=== PATIENT | female | born 1995 | race Caucasian/White ===

== ENCOUNTER 2017-03-05 10:48 | Day surgery (SDC) | payer BC, OTHER ==
[2017-02-22 10:02] VITALS: BP 108/53
[~2017-03-05] VITALS: Ht 172.7 cm; Wt 48.0 kg
[~2017-03-05 10:48] MED LIST: ALBUTEROL INH INH; ALBUTEROL NEB; BACITRACIN 50,000 UNIT ONE; BACITRACIN OINT 500U/GM, 15 GM ONE; EPINEPHRINE 1 MG/ML, 1ML ONE; EPINEPHRINE TOPICAL SOLN 1 MG/ML, 30ML ONE; FLUORESCEIN OPHTHALMIC 1 MG STRIP ONE; HYDR-3240 PO; LIDOCAINE/PF 1%, 30ML ONE; OXYMETAZOLINE NASAL SPRAY 0.05%, 15ML ONE
[2017-03-05] MEDS ORDERED: LACTATED RINGERS 1,000 ML IV SCH (11:15)
[2017-03-05 11:17] VITALS: BP 108/53
[2017-03-05] MEDS ORDERED: LIDOCAINE 1%, 2ML SQ PRN (11:30)
[2017-03-05 11:48] LABS: HCG UR OBC PASS
[2017-03-05] MEDS ORDERED: OXYMETAZOLINE NASAL SPRAY 0.05%, 15ML ONE (12:40)
[2017-03-05] MEDS ORDERED: ALBUTEROL SULFATE 2.5 MG/3 ML NPPB PRN (13:00)
[2017-03-05] MEDS ORDERED: ONDANSETRON 2MG/ML, 2ML IVPush PRN (13:00)
[2017-03-05] MEDS ORDERED: ACETAMINOPHEN 325 MG TABLET PO PRN (13:00)
[2017-03-05] MEDS ORDERED: PROMETHAZINE 25 MG/ML, 1ML IV PRN (13:00)
[2017-03-05] MEDS ORDERED: OXYcodone 5 MG/5 ML ORAL.SOL UDC PO PRN (13:00)
[2017-03-05] MEDS ORDERED: CEFAZOLIN 1,000 MG ONE (13:01)
[2017-03-05] MEDS ORDERED: ONDANSETRON 2MG/ML, 2ML ONE (13:01)
[2017-03-05] MEDS ORDERED: PROPOFOL 10 MG/ML, 20ML ONE (13:01)
[2017-03-05] MEDS ORDERED: GLYCOPYRROLATE 0.2MG/1ML ONE (13:01)
[2017-03-05] MEDS ORDERED: ROCURONIUM 10 MG/ML ONE (13:01)
[2017-03-05] MEDS ORDERED: NEOSTIGMINE 1 MG/ML, 10ML ONE (13:01)
[2017-03-05] MEDS ORDERED: DEXAMETHASONE 4 MG/ML, 1ML ONE (13:01)
[2017-03-05] MEDS ORDERED: OXYcodone 5 MG/5 ML ORAL.SOL UDC ONE (15:42)
[2017-03-05] MEDS ORDERED: FENTANYL PF 100 MCG/2ML ONE (15:42)
[2017-03-05] MEDS: FENTANYL PF 100 MCG/2ML IV PRN ×2 (15:48→16:07)
[2017-03-05] MEDS ORDERED: HYDROmorphone 1 MG/ML, 1ML ONE (15:51)
[2017-03-05] MEDS: HYDROmorphone 1 MG/ML, 1ML IV PRN ×4 (15:54→16:39)
[2017-03-05] MEDS ORDERED: morphine SULFATE 10 MG/ML, 1ML IVPush PRN (17:30)
[2017-03-05] MEDS ORDERED: OXYcodone/APAP 5/325MG TABLET ONE (18:24)
[2017-03-05] MEDS ORDERED: OXYcodone/APAP 5/325MG TABLET PO PRN (18:30)
== END 2017-03-05 18:55 ==
LOC: OUT 10:48
PROVIDERS: ATTEND Otolaryngology
PROC: 8E09XBZ Computer Assisted Procedure of Head and Neck Region (ICD-10-PCS; principal; 2017-03-05 12:45)
DX: J32.9 Chronic sinusitis, unspecified (principal); J34.2 Deviated nasal septum; J33.9 Nasal polyp, unspecified
CPT/HCPCS: 30520; 31255; 31256; 31276; 31287; 61782; 81025; 88304; J0171; J0690; J1100; J1170; J2405; J2704; J2710; J3010; J3490; J7120; J2250; S1090